=== PATIENT | female | born 1995 | race Caucasian/White ===

== ENCOUNTER 2017-08-08 20:26 | Observation (INO) | payer MEDICAID ==
[~2017-08-08] VITALS: Ht 162.6 cm; Wt 59.9 kg
[2017-08-09] MEDS ORDERED: ONDANSETRON 4MG ODT PO STA (00:28)
[2017-08-09] MEDS ORDERED: SODIUM CHLORIDE 0.9% 500 ML IV ONE (00:28)
[2017-08-09] MEDS ORDERED: ACETAMINOPHEN 325MG TABLET PO STA (00:28)
[2017-08-09 00:38] LABS: BASOPHILS % 0.2 % (0.0-2.0); HEMATOCRIT. 36.7 % (36.0-48.0); HEMOGLOBIN. 12.6 g/dL (12.0-16.0); MEAN CORPUSCULAR HEMOGLOBIN 31.2 pg (28.0-32.0); MEAN CORPUSCULAR VOLUME 91.2 fL (81.0-99.0); MEAN PLATELET VOLUME 8.1 fl (7.4-10.4); MONOCYTES % 5.1 % (2.0-8.0); NEUTROPHILS % 81.7 % (40.0-76.0); PLATELET 230 x1000/uL (130-400); RED BLOOD CELL COUNT 4.03 mill/uL (4.2-5.4); RED CELL DISTRIBUTION WIDTH 13.7 % (11.6-14.6)
[2017-08-09 00:44] LABS: CHLORIDE 106 mEq/L (98-107)
[2017-08-09 00:48] LABS: CLARITY URINE CLOUDY (CLEAR); COLOR URINE YELLOW (YELLOW); KETONES URINE TRACE (NEGATIVE); LEUKOCYTE ESTERASE URINE NEGATIVE (NEGATIVE); NITRITE URINE NEGATIVE (NEGATIVE); OCCULT BLOOD URINE NEGATIVE (NEGATIVE); PROTEIN URINE TRACE (NEGATIVE); SPECIFIC GRAVITY URINE 1.028 (1.005-1.030)
[2017-08-09 00:52] LABS: CARBON DIOXIDE 23 mEq/L (21-32)
[2017-08-09 01:03] LABS: PROTHROMBIN TIME 10.6 sec (9.4-11.6)
[2017-08-09 01:11] LABS: HCG SCREEN NEGATIVE
[2017-08-09] MEDS ORDERED: MORPHINE SULFATE 2 MG/ML CPJ (NOT FOR IM USE) IV ONE (06:15)
[2017-08-09] MEDS ORDERED: PIPERACILLIN/TAZOBACTAM 3.375GM/50ML PREMIX IV ONE (06:15)
[2017-08-09] MEDS ORDERED: PIPERACILLIN/TAZ 3.375G PREMIX 50 ML IV ONE (06:30)
[2017-08-09] MEDS ORDERED: DIATR MEGLU/DIATRIZOATE SOLN 30ML ONE (07:31)
[2017-08-09] MEDS ORDERED: MORPHINE SULFATE 2 MG/ML CPJ (NOT FOR IM USE) IV PRN (09:00)
[2017-08-09] MEDS ORDERED: HYDROCODONE/ACETAMINOPHEN 5/325MG TABLET PO PRN ×2 (09:00)
[2017-08-09] MEDS ORDERED: MORPHINE SULFATE 10 MG/ML CPJ IV PRN (09:00)
[2017-08-09] MEDS ORDERED: ONDANSETRON HCL 4MG/2ML VIAL IV PRN ×2 (09:00→10:00)
[2017-08-09] MEDS ORDERED: SKIN ADHESIVE 0.7 GM EA TOP ONE ×2 (09:14→09:15)
[2017-08-09] MEDS ORDERED: BUPIVACAINE HCL 0.5% (5MG/ML) 50ML ONE (09:14)
[2017-08-09] MEDS ORDERED: MIDAZOLAM HCL 2 MG/2 ML VIAL ONE (09:31)
[2017-08-09] MEDS ORDERED: FENTANYL CITRATE/PF 50MCG/ML 2ML VIAL ONE (09:32)
[2017-08-09] MEDS ORDERED: PROPOFOL 200MG/20ML VIAL IV ONE (09:32)
[2017-08-09] MEDS ORDERED: ROCURONIUM BROMIDE 10MG/ML VIAL 5ML IV ONE (09:32)
[2017-08-09] MEDS ORDERED: LIDOCAINE HCL 1% 20ML VIAL (Pyxis) INJ ONE (09:32)
[2017-08-09] MEDS ORDERED: FENTANYL CITRATE/PF 50MCG/ML 2ML VIAL IV PRN (10:00)
[2017-08-09] MEDS ORDERED: HYDROMORPHONE HCL/PF 2MG/ML CPJ IV PRN (10:00)
[2017-08-09] MEDS ORDERED: METOCLOPRAMIDE HCL 10MG/2ML VIAL ONE (10:00)
[2017-08-09] MEDS ORDERED: CEFAZOLIN SODIUM 1000MG/VIAL ONE (10:00)
[2017-08-09] MEDS ORDERED: GLYCOPYRROLATE 0.2 MG/ML 2ML VIAL ONE ×3 (10:08→10:21)
[2017-08-09] MEDS ORDERED: NEOSTIGMINE METHYLSULFATE 1MG/ML 10 ML VIAL ONE ×2 (10:08→10:21)
[2017-08-09] MEDS ORDERED: KETOROLAC 30MG/ML VIAL ONE (10:10)
[2017-08-09 12:00] VITALS: BP 105/60
[2017-08-09 12:30] VITALS: BP 107/70
[2017-08-09] MEDS: DEXT 5%/0.45% NACL KCL 20MEQ/L 1,000 ML IV SCH ×2 (14:00→16:44)
[2017-08-09 16:00] VITALS: BP 97/49
[2017-08-09] MEDS ORDERED: ACETAMINOPHEN 650MG/20.3ML UDC PO PRN (16:45)
[2017-08-09] MEDS: SODIUM CHLORIDE 0.9% 1,000 ML IV SCH ×2 (16:59→23:16)
[2017-08-09 20:00] VITALS: BP 111/63
[2017-08-10] VITALS: BP 102/58
[2017-08-10 08:00] VITALS: BP 114/67
[2017-08-10] MEDS: SODIUM CHLORIDE 0.9% 1,000 ML IV SCH ×2 (08:05→12:45)
[2017-08-10] MEDS: DEXT 5%/0.45% NACL KCL 20MEQ/L 1,000 ML IV SCH (11:23)
[2017-08-10 12:00] VITALS: BP 113/66
[2017-08-10 13:57] VITALS: BP 113/66
== END 2017-08-10 14:25 | disposition home or self-care (01) ==
LOC: ER 21:30 → INTOOBSV 08-09 06:47 → 6EST 08-09 06:47 → ENRESERV 08-09 08:28
PROVIDERS: ADMIT Internal Medicine; ATTEND Internal Medicine
DX: K35.80 Unspecified acute appendicitis (principal)
CPT/HCPCS: 36415; 44970; 74176; 76705; 76830; 76856; 80053; 81001; 81025; 83690; 84703; 85025; 85610; 88304; 99285; G0168; G0378; J0690; J1885; J2250; J2270; J2405; J2543; J2710; J2765; J3010; J3490; J7030; Q0162; 96365; 96375; J2704; Q9963

== ENCOUNTER 2022-03-31 07:57 | Emergency (ER) | payer MEDICAID, OTHER ==
[~2022-03-31] VITALS: Ht 149.9 cm; Wt 63.0 kg
[2022-03-31] MEDS ORDERED: MORPHINE SULFATE 4 MG/ML CPJ (NOT FOR IM USE) IV STA (08:29)
[2022-03-31] MEDS ORDERED: ONDANSETRON HCL 4MG/2ML INJ IV STA (08:29)
[2022-03-31] MEDS ORDERED: SODIUM CHLORIDE 0.9% 1,000 ML IV ONE (08:30)
[2022-03-31 08:55] LABS: CLARITY URINE CLEAR (CLEAR); COLOR URINE YELLOW (YELLOW); KETONES URINE NEGATIVE (NEGATIVE); LEUKOCYTE ESTERASE URINE TRACE (NEGATIVE); NITRITE URINE POSITIVE (NEGATIVE); OCCULT BLOOD URINE NEGATIVE (NEGATIVE); PROTEIN URINE NEGATIVE (NEGATIVE); SPECIFIC GRAVITY URINE 1.022 (1.005-1.030)
[2022-03-31 08:55] LABS: BASOPHILS % 0.7 % (0.0-2.0); EOSINOPHILS % 0.3 % (0.0-5.0); HEMOGLOBIN. 13.5 g/dL (12.0-16.0); LYMPHOCYTES % 21.8 % (20.0-50.0); MEAN CORPUSCULAR HEMOGLOBIN 31.1 pg (28.0-32.0); MEAN CORPUSCULAR VOLUME 92.4 fL (81.0-99.0); MEAN PLATELET VOLUME 8.3 fl (7.4-10.4); MONOCYTES % 4.9 % (2.0-8.0); NEUTROPHILS % 72.3 % (40.0-76.0); PLATELET 318 x1000/uL (130-400); RED BLOOD CELL COUNT 4.33 mill/uL (4.2-5.4); RED CELL DISTRIBUTION WIDTH 13.8 % (11.6-14.6)
[2022-03-31 09:02] LABS: CHLORIDE 106 mEq/L (98-107)
[2022-03-31 09:08] LABS: HCG SCREEN NEGATIVE
[2022-03-31] MEDS ORDERED: KETOROLAC 15MG/ML VIAL IV ONE (09:15)
[2022-03-31] MEDS ORDERED: MORPHINE SULFATE 4 MG/ML CPJ (NOT FOR IM USE) IV ONE ×2 (09:15→10:45)
[2022-03-31] MEDS ORDERED: ONDANSETRON HCL 4MG/2ML INJ IV ONE (10:45)
[2022-03-31 11:30] VITALS: BP 141/84
[2022-03-31] MEDS ORDERED: CEFTRIAXONE SODIUM 500 MG/VIAL IM ONE (11:45)
[2022-03-31] MEDS ORDERED: AZITHROMYCIN 500 MG TABLET PO ONE (11:45)
[2022-03-31] MEDS ORDERED: NITR-87 MT (12:31)
[2022-03-31] MEDS ORDERED: HYDR-4001 MT (12:31)
[2022-03-31] MEDS ORDERED: IBUP-2028 MT (12:31)
[2022-03-31] MEDS ORDERED: METR-167 MT (12:31)
[2022-04-03 05:08] LABS: NEISSERIA GONORRHOEAE NAA Negative (Negative)
== END 2022-03-31 13:02 | disposition home or self-care (01) ==
LOC: ER 07:57
DX: N83.201 Unspecified ovarian cyst, right side (principal); N39.0 Urinary tract infection, site not specified; N76.0 Acute vaginitis; Z90.49 Acquired absence of other specified parts of digestive tract
CPT/HCPCS: 36415; 76830; 76856; 80053; 81003; 81025; 83690; 84703; 85025; 87210; 87491; 87591; 96372; 96374; 96375; 96376; 99284; J0696; J1885; J2270; J2405; J7030

== ENCOUNTER 2022-09-30 07:28 | Emergency (ER) | payer OTHER ==
[~2022-09-30] VITALS: Ht 149.9 cm; Wt 66.0 kg
[~2022-09-30 07:28] MED LIST: HYDR-4001 MT; IBUP-2028 MT; METR-167 MT; NITR-87 MT
[2022-09-30 07:35] VITALS: BP 101/50
[2022-09-30] MEDS ORDERED: ONDANSETRON HCL 4MG/2ML INJ IV STA (08:06)
[2022-09-30] MEDS ORDERED: SODIUM CHLORIDE 0.9% 1,000 ML IV ONE (08:15)
[2022-09-30] MEDS ORDERED: MECLIZINE 25MG TABLET PO ONE (08:15)
[2022-09-30 08:42] LABS: CHLORIDE 106 mEq/L (98-107)
[2022-09-30 08:43] LABS: BASOPHILS % 0.1 % (0.0-2.0); HEMATOCRIT. 39.1 % (36.0-48.0); LYMPHOCYTES % 7.8 % (20.0-50.0); MEAN CORPUSCULAR HEMOGLOBIN 30.4 pg (28.0-32.0); MEAN CORPUSCULAR VOLUME 91.8 fL (81.0-99.0); MEAN PLATELET VOLUME 9.1 fl (7.4-10.4); MONOCYTES % 3.7 % (2.0-8.0); NEUTROPHILS % 88.4 % (40.0-76.0); PLATELET 264 x1000/uL (130-400); RED BLOOD CELL COUNT 4.26 mill/uL (4.2-5.4); RED CELL DISTRIBUTION WIDTH 14.1 % (11.6-14.6)
[2022-09-30 09:07] LABS: HCG SCREEN NEGATIVE
[2022-09-30] MEDS ORDERED: MECL-159 PO (11:13)
[2022-09-30] MEDS ORDERED: ONDA4TAB50 PO (11:31)
== END 2022-09-30 12:20 | disposition home or self-care (01) ==
LOC: ER 07:28
DX: R42 Dizziness and giddiness (principal); R07.89 Other chest pain; Z90.49 Acquired absence of other specified parts of digestive tract
CPT/HCPCS: 36415; 71045; 80053; 84703; 85025; 93005; 96361; 96374; 99284; J2405; J7030; J8597

== ENCOUNTER 2024-05-23 11:59 | Emergency (ER) | payer SELFPAY ==
[~2024-05-23] VITALS: Ht 149.9 cm; Wt 65.0 kg
[~2024-05-23 11:59] MED LIST changes: +MECL-299 PO; +ONDA4TAB50 PO
[2024-05-23 12:01] VITALS: O2SAT 99
[2024-05-23 12:06] VITALS: TEMP 98.4; O2SAT 99
[2024-05-23 12:44] LABS: CLARITY URINE CLEAR (CLEAR); COLOR URINE YELLOW (YELLOW); GLUCOSE URINE NEGATIVE (NEGATIVE); KETONES URINE NEGATIVE (NEGATIVE); LEUKOCYTE ESTERASE URINE NEGATIVE (NEGATIVE); NITRITE URINE NEGATIVE (NEGATIVE); OCCULT BLOOD URINE NEGATIVE (NEGATIVE); PROTEIN URINE NEGATIVE (NEGATIVE); SPECIFIC GRAVITY URINE 1.012 (1.005-1.030); UROBILINOGEN URINE 0.2 E.U./dL (0.2-1.0)
[2024-05-23 12:53] LABS: BASOPHILS % 0.3 % (0.0-2.0); EOSINOPHILS % 0.4 % (0.0-5.0); HEMATOCRIT. 37.6 % (36.0-48.0); HEMOGLOBIN. 12.5 g/dL (12.0-16.0); LYMPHOCYTES % 23.3 % (20.0-50.0); MEAN CORPUSCULAR HEMOGLOBIN 30.6 pg (28.0-32.0); MEAN CORPUSCULAR HGB CONC 33.3 g/dL (31.0-37.0); MEAN PLATELET VOLUME 7.8 fl (7.4-10.4); MONOCYTES % 7.3 % (2.0-8.0); NEUTROPHILS % 68.7 % (40.0-76.0); PLATELET 289 x1000/uL (130-400); RED BLOOD CELL COUNT 4.08 mill/uL (4.2-5.4); WHITE BLOOD COUNT 8.3 x1000/uL (4.5-11.0)
[2024-05-23 13:02] LABS: CHLORIDE 107 mEq/L (98-107); POTASSIUM 3.9 mEq/L (3.5-5.1); SODIUM 138 mEq/L (136-145)
[2024-05-23 13:03] LABS: CARBON DIOXIDE 28 mEq/L (21-32)
[2024-05-23 13:04] LABS: CALCIUM 9.4 mg/dL (8.7-10.4)
[2024-05-23 13:08] LABS: CREATININE 0.8 mg/dL (0.6-1.0); GLUCOSE 103 mg/dL (70-105)
[2024-05-23 13:09] LABS: UREA NITROGEN BLOOD 9 mg/dL (9-23)
[2024-05-23 13:30] VITALS: BP 130/7; PULSE 80; RESP 16
[2024-05-23] MEDS: KETOROLAC 30MG/ML VIAL IV STA (13:30)
[2024-05-23] MEDS: SODIUM CHLORIDE 0.9% 500 ML IV ONE (13:30)
[2024-05-23] MEDS: MECLIZINE 25MG TABLET PO ONE (13:30)
[2024-05-23] MEDS: ONDANSETRON HCL 4MG/2ML INJ IV ONE (13:30)
[2024-05-23] MEDS ORDERED: MECL-299 PO (14:45)
== END 2024-05-23 16:06 | disposition home or self-care (01) ==
LOC: ER 11:59
DX: R42 Dizziness and giddiness (principal); R51.9 Headache, unspecified; Z79.899 Other long term (current) drug therapy
CPT/HCPCS: 99285; 96374; 70450; 71045; 96361; 96375; 80048; 81003; 81025; 85025; 36415; J8597; J1885; J2405; J7030